=== PATIENT | female | born 1990 | race Hispanic/Latino ===

== ENCOUNTER 2016-09-11 13:21 | Emergency (ER) | payer OTHER ==
[~2016-09-11] VITALS: Ht 162.6 cm; Wt 76.2 kg
[2016-09-11] MEDS ORDERED: DEPO-PROVE150 MG/11 IM (13:33)
--- NOTE | 2016-09-11 14:10 | ED EYE COMPLAINT ---
History of Present Illness General Chief Complaint: Eye Problems Stated Complaint: SENT BY EYE DR FOR SWOLLEN NERVES Source: patient Exam Limitations: no limitations Vital Signs & Intake/Output Vital Signs & Intake/Output Vital Signs Date Time Temp Pulse Resp B/P Pulse O2 O2 Flow FiO2 Ox Delivery Rate 09/11 1819 98.3 98 15 115/74 100 Room Air 09/11 1527 99 Room Air 09/11 1517 97.0 94 22 117/78 100 Room Air 09/11 1325 96.8 103 20 139/90 99 Room Air ED Intake and Output 09/12 0000 09/11 1200 Intake Total 60 Output Total Balance 60 Intake, Oral 60 Patient 168 lb Weight Allergies Coded Allergies: No Known Allergies (09/11/16) Reconcile Medications Butalb/Acetaminophen/Caffeine (Fioricet 50-300-40 MG Capsule) 50 MG-300 MG-40 MG CAPSULE 1 TAB PO Q8 PRN HEADACHE Medroxyprogesterone Acetate (Depo-Provera) 150 MG/ML SYRINGE 1 ML IM Q3M CONTROL (Reported) Triage Note: PT PRESENTS TO ER FROM EYE DOCTOR FOR "SWOLLEN EYE NERVES." PT STATES SHE WAS SENT TO ER BY EYE DOCTOR (DR. ELDRIDGE) FOR EVAL. PT STATES SHE WENT TO DOCTOR DUE TO LEFT EYE VISION CHANGES FOR SEVERAL MONTHS. Triage Nurses Notes Reviewed? yes : No Patient currently breastfeeds: No HPI: This patient is a 26-year-old female who presented to the emergency department today sent in by her break out worker or evaluation of optic nerve swelling. The patient reported that over the last several months she has been having increasingly worse painless, blurriness in her left eye. She reported that she gets the blurriness approximately 3 times a day and he gets so bad that she feels like she cannot see anything out of her left eye 1-2 times a day. She reported that sometimes the back of her neck feels, "numb," but denied any pain or difficulty moving her neck. The patient reported that she does get associated frontal headache secondary to an 8 out of 10 and are responsive to ibuprofen. She denied any weakness or paresthesias in her extremities. She denied any chest pain or difficulty breathing. (ISMA THAKUR,CRUZ) Past History Travel History Traveled to [place] past 21 day No Medical History Any Pertinent Medical History? see below for history Surgical History Surgical History: non-contributory Psychosocial History What is your primary language Mongolian Tobacco Use: Never used Family History Hx Contributory? No (CRUZ ASHBY PA-C) Review of Systems Review of Systems Constitutional: Reports: no symptoms. Eyes: Reports: see HPI. Ear: Reports: no symptoms. Nose: Reports: no symptoms. Mouth: Reports: no symptoms. Throat: Reports: no symptoms. Respiratory: Reports: no symptoms. Cardiovascular: Reports: no symptoms. GI: Reports: no symptoms. Genitourinary: Reports: no symptoms. Musculoskeletal: Reports: no symptoms. Skin: Reports: no symptoms. Neurological/Psychological: Reports: see HPI. All Other Systems: Reviewed and Negative (CRUZ ASHBY PA-C) Physical Exam General Appearance: well developed/nourished, no apparent distress, alert, awake General Inspection: no periorbital erythema or edema. EOMI bilaterally. No nystagmus. No papilledema. No AV nicking. No cotton-wool spots. No conjunctival injection. PERRLA. General Inspection: no proptosis. No periorbital erythema or edema. Foreign body appreciated. EOMI. PERRLA. No papilledema on funduscopic examination. No AV nicking or cotton-wool spots. No nystagmus Physical Exam Comments: Well-developed well-nourished person in no acute distress HEENT: Head normocephalic/atraumatic with no bony deformity/step-off the skull, no tenderness to palpation of the scalp Neck: Supple, no lymphadenopathy, normal range of motion without pain or tenderness Back: Normal gait Cardiovascular: Regular rate and rhythms no murmurs, normal JVP Respiratory: Chest nontender. No respiratory distress. Breath sounds clear to auscultation bilaterally Extremity: No edema, no calf tenderness to palpation, normal and equal pulses. Neuro: Alert oriented x3, motor sensory normal, cranial nerves II through XII grossly intact. 5 out of 5 muscular strength in all extremities Skin: No appreciable rash on exposed skin, skin is warm and dry. Psych: Mood and affect is normal, memory and judgment is normal. (CRUZ ASHBY PA-C) Progress Differential Diagnosis: corneal abrasion, corneal foreign body, conjunctivitis, detached retina, glaucoma, globe rupture, retinal art./v. occlusion, optic neuritis, multiple sclerosis,pseudotumor cerebri, migraine headache with aura Plan of Care: Orders Procedure Date/time Status BLOOD CULTURE 09/11 1434 Active URINE 09/11 143 Complete WESTERGREN SED RATE 09/11 143 Complete COMPREHENSIVE METABOLIC PANEL 09/11 143 Complete CBC WITHOUT DIFFERENTIAL 09/11 143 Complete Laboratory Tests 09/11/16 1510: Anion Gap 11, Estimated GFR > 60, BUN/Creatinine Ratio 15.0, Glucose 81, Calcium 9.7, Total Bilirubin 0.6, AST 14, ALT 29, Alkaline Phosphatase 78, Total Protein 7.5, Albumin 4.1, Globulin 3.4, Albumin/Globulin Ratio 1.2, CBC w Diff NO MAN DIFF REQ, RBC 4.05 L, MCV 89.7, MCH 29.4, RDW 13.6, MPV 8.9, Gran % 71.1, Lymphocytes % 23.6, Monocytes % 3.7, Eosinophils % 1.2, Basophils % 0.4, Absolute Granulocytes 7.3 H, Absolute Lymphocytes 2.4, Absolute Monocytes 0.4, Absolute Eosinophils 0.1, Absolute Basophils 0, PUBS MCHC 32.8 L, ESR Westergren 16 09/11/16 1501: Urine Test NEGATIVE Microbiology 09/11 1520 BLOOD: Blood Culture - RECD 09/11 1510 BLOOD: Blood Culture - RECD Diagnostic Imaging: Viewed by Me: CT Scan. Discussed w/RAD: CT Scan. Radiology Impression: PATIENT: JOSEPH SCALES PRESENT AGE: 26 PATIENT ACCOUNT NO: [id number] : 92 LOCATION: [facility] ORDERING PHYSICIAN: CRUZ ASHBY PA-C SERVICE DATE: 09/11/16 EXAM TYPE: CAT - CT HEAD WO IV CONTRAST EXAMINATION: CT HEAD WITHOUT CONTRAST CLINICAL INFORMATION: Evaluate for intracranial hemorrhage or mass. Headache. Optic nerve swelling. COMPARISON: No relevant prior imaging available. TECHNIQUE: Contiguous axial imaging was performed from the skull base to vertex without intravenous administration of contrast. DLP: 529.16 mGy-cm FINDINGS: There is no acute intracranial hemorrhage or abnormal extra-axial collection. No intracranial mass effect or midline shift. Lateral and third ventricles are normal. No hydrocephalus. Barron-white matter differentiation is preserved and there is no evidence of acute territorial infarct. The calvarium and skull base are intact. Mastoid air cells and middle ear cavities are well aerated. Visualized paranasal sinuses are well aerated. Globes and orbits are symmetric. IMPRESSION: Unremarkable CT scan of the head. 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 < Electronically signed in Other Vendor System> SIGNED BY: HODAN PENNINGTON MD 09/11/16 9336 Comments: 09/11/2016 2:12:48 PM: I spoke to this patient's break out worker, Dr. Eldridge. He reported that she has presumed pseudotumor cerebri. He is requesting either a CT of the head or MRI of the head. He would like her blood Pressure checked as well as a neurology consultation. Recommending possible lumbar puncture. He reported that there was no buffalo hump on examination and he thinks of a cot this early. 09/11/2016 2:36:35 PM: I discussed with this patient my discussion with her break out worker. She would like to see the neurologist first before having the lumbar puncture. I will obtain a CT of her head as well as blood work. Discussed this patient with Dr. Reynolds who is in agreement with the plan. She is not currently having any severe blurriness. She reported that right now it is, "just mild." No current headaches. 09/11/2016 5:50:29 PM: I discussed this patient with on-call neurologist, Dr. Sewell. He will be seeing this patient in the office and possibly doing an outpatient lumbar puncture. (CRUZ ASHBY PA-C) Departure Departure Disposition: HOME OR SELF CARE Condition: Stable Clinical Impression Primary Impression: Pseudotumor cerebri Referrals: JAIDEN COE MD PATIENT HAS NO PRIMARY CARE DR (PCP/Family) Additional Instructions: Please follow-up with the neurologist as discussed as you may need an outpatient lumbar puncture. Take medication for pain as prescribed. Return for any worsening symptoms or concerns. Departure Forms: Customer Survey General Discharge Information Prescriptions: Current Visit Scripts Butalb/Acetaminophen/Caffeine (Fioricet 50-300-40 MG Capsule) 1 TAB PO Q8 PRN HEADACHE #10 TAB (CRUZ ASHBY PA-C) PA/DRIVING SCHOOL INSTRUCTOR Co-Sign Statement Statement: ED Attending supervision documentation- [] I saw and evaluated the patient. I have also reviewed all the pertinent lab results and diagnostic results. I agree with the findings and the plan of care as documented in the PA's/DRIVING SCHOOL INSTRUCTOR's documentation. [X] I have reviewed the ED Record and agree with the PA's/DRIVING SCHOOL INSTRUCTOR's documentation. [] Additions or exceptions (if any) to the PAs/DRIVING SCHOOL INSTRUCTOR's note and plan are summarized below: [] (JOSHUA MATA,YVES)
[2016-09-11 15:22] LABS: ABSOLUTE BASOPHIL COUNT 0 /CUMM (0.0-0.2); ABSOLUTE EOSINOPHIL COUNT 0.1 /CUMM (0.0-0.7); ABSOLUTE GRANULOCYTE CT 7.3 /CUMM (1.4-6.5); ABSOLUTE LYMPH COUNT 2.4 /CUMM (1.2-3.4); ABSOLUTE MONOCYTE COUNT 0.4 /CUMM (0.10-0.60); BASOPHIL % 0.4 % (0.0-2.0); EOSINOPHIL % 1.2 % (0-5); GRANULOCYTE % 71.1 % (42.2-75.2); HEMATOCRIT 36.3 % (37-47); MEAN CORPUSCULAR HGB 29.4 PG (27.0-31.0); MEAN CORPUSCULAR HGB CONC 32.8 G/DL (33.0-37.0); MEAN CORPUSCULAR VOLUME 89.7 FL (81.0-99.0); MEAN PLATELET VOLUME 8.9 FL (7.4-10.4); PLATELET COUNT 345 /CUMM (130-400); RBC DISTRIBUTION WIDTH 13.6 % (11.5-14.5); RED BLOOD CELL CT 4.05 /CUMM (4.20-5.40); WHITE BLOOD CELL COUNT 10.2 /CUMM (4.8-10.8)
--- NOTE | 2016-09-11 17:12 | CT SCAN REPORT ---
EXAMINATION: CT HEAD WITHOUT CONTRAST CLINICAL INFORMATION: Evaluate for intracranial hemorrhage or mass. Headache. Optic nerve swelling. COMPARISON: No relevant prior imaging available. TECHNIQUE: Contiguous axial imaging was performed from the skull base to vertex without intravenous administration of contrast. DLP: 529.16 mGy-cm FINDINGS: There is no acute intracranial hemorrhage or abnormal extra-axial collection. No intracranial mass effect or midline shift. Lateral and third ventricles are normal. No hydrocephalus. Barron-white matter differentiation is preserved and there is no evidence of acute territorial infarct. The calvarium and skull base are intact. Mastoid air cells and middle ear cavities are well aerated. Visualized paranasal sinuses are well aerated. Globes and orbits are symmetric. IMPRESSION: Unremarkable CT scan of the head.
[2016-09-11] MEDS ORDERED: FIORICET 50-301 EACH PO (17:51)
[2016-09-11 18:19] VITALS: BP 115/74
== END 2016-09-11 18:19 ==
LOC: ERH 13:21
PROVIDERS: Physician Assistant
DX: G93.2 Benign intracranial hypertension (principal); R51 Headache; R20.0 Anesthesia of skin
CPT/HCPCS: 81025; 87040

== ENCOUNTER 2016-09-17 15:09 | Emergency (ER) | payer OTHER ==
[~2016-09-17 15:09] MED LIST: DEPO-PROVE150 MG/11 IM; FIORICET 50-301 EACH PO
--- NOTE | 2016-09-17 17:42 | ED EYE COMPLAINT ---
History of Present Illness General Chief Complaint: Eye Problems Stated Complaint: "UM I WAS HERE LAST TIME NERVE PROBLEMS IN EYE" Source: patient, old records Exam Limitations: no limitations Vital Signs & Intake/Output Vital Signs & Intake/Output Vital Signs Date Time Temp Pulse Resp B/P Pulse O2 O2 Flow FiO2 Ox Delivery Rate 09/17 2024 97.2 68 17 106/58 99 Room Air 09/17 1827 97.5 62 18 115/64 100 09/17 1537 97.2 80 22 125/81 98 Allergies Coded Allergies: No Known Allergies (09/11/16) Reconcile Medications Acetazolamide 250 MG TABLET 1 TAB PO BID ELEVATED CSF PRESSURE Butalb/Acetaminophen/Caffeine (Fioricet 50-300-40 MG Capsule) 50 MG-300 MG-40 MG CAPSULE 1 TAB PO Q8 PRN HEADACHE Medroxyprogesterone Acetate (Depo-Provera) 150 MG/ML SYRINGE 1 ML IM Q3M CONTROL (Reported) Triage Note: PER PT SEEN 4 DAYS AGO FOR EYE PRESSURE TOLD TO COME BACK IF WORSE, PAIN WORSE. LMP 08/22/16 Triage Nurses Notes Reviewed? 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 Patient was evaluated in the emergency department previously and diagnosed with intracranial hypertension. She was referred to a neurologist but she has been unable to follow up (she was instructed by our neurologists to follow up with [facility] but then was told by [facility] that she needed a referral). Patient has had headaches and intermittent visual loss in the left eye. Patient denies any visual changes currently but is still suffering her headache. It has been an intermittent diffuse headache. No associated fever, chills, fevers or night sweats. Although the patient currently has the headache, she denies any visual disturbances at this time. (FUNMI MATA,MEHREEN Perales) Past History Travel History Traveled to [place] past 21 day No Medical History Any Pertinent Medical History? see below for history Neurological: NONE EENT: NONE Cardiovascular: NONE Respiratory: NONE Gastrointestinal: NONE Hepatic: NONE Renal: NONE Musculoskeletal: NONE Psychiatric: NONE Endocrine: NONE Surgical History Surgical History: non-contributory Psychosocial History What is your primary language Romansh Tobacco Use: Never used Family History Hx Contributory? No (MEHREEN CHOUDHARY MD) Review of Systems Review of Systems Constitutional: Reports: no symptoms. Eyes: Reports: see HPI. Ear: Reports: no symptoms. Nose: Reports: no symptoms. Mouth: Reports: no symptoms. Throat: Reports: no symptoms. Respiratory: Reports: no symptoms. Cardiovascular: Reports: no symptoms. GI: Reports: no symptoms. Genitourinary: Reports: no symptoms. Musculoskeletal: Reports: no symptoms. Skin: Reports: no symptoms. Neurological/Psychological: Reports: headache. Hematologic/Endocrine: Reports: no symptoms. Immunologic/Allergic: Reports: no symptoms. All Other Systems: Reviewed and Negative (FUNMI MATA,MEHREEN Perales) Physical Exam General Appearance: SEE BELOW General Inspection: normal inspection General Inspection: normal inspection Physical Exam Head: atraumatic, normal appearance Ears: Bilateral: other (NORMAL INSPECTION). Nose: normal inspection Neck: supple, full range of motion Neurologic/Psych: continuity tester II-XII nml as tested Skin: warm/dry Comments: Continuation of IV exam: PERRL bilaterally, EOMI bilaterally, funduscopic examination normal bilaterally. (FUNMI MATA,MEHREEN Perales) Progress Differential Diagnosis: NORMAL PRESSURE HYDROCEPHALUS/IDIOPATHIC INTRACRANIAL HYPERTENSION Plan of Care: Orders Procedure Date/time Status CEREBROSPINAL FLUID CULTURE 09/17 1946 Active CYTOLOGY SPECIMEN 09/17 1946 Active CSF TOTAL PROTEIN 09/17 1946 Complete CEREBROSPINAL FL CELL CT 09/17 1946 Complete CSF LDH 09/17 1946 Complete CSF GLUCOSE 09/17 1946 Complete Laboratory Tests 09/17/16 2000: CSF Glucose 54, CSF LDH 309, CSF Total Protein 22 09/17/16 2000: CSF WBC 1, CSF RBC 1 H, CSF Comment Microbiology 09/17 2004 [facility]: CSF Culture - RES 09/17 2004 [facility]: Gram Stain - RES Hand-Off Endorsed To: JESUS MATA,ANGELA Garcia Endorsed Time: 2012 Pending: labs (csf) Comments: 09/17/2016 6:39:51 PM patient's case discussed with Dr. Arias who feels that the patient's pulmonary diagnosis of intracranial hypertension is yet to be properly established. He feels that a lumbar puncture would be of great help in determining if patient's symptoms are in fact due to idiopathic intracranial hypertension. Patient is agreeable to a lumbar puncture, PAR explained. (FUNMI MATA,MEHREEN Perales) Departure Departure Disposition: HOME OR SELF CARE Condition: Stable Clinical Impression Primary Impression: Intracranial hypertension Referrals: [facility] PATIENT HAS NO PRIMARY CARE DR (PCP/Family) Additional Instructions: Follow-up with the [place] neurology clinic or the [facility] clinic as soon as possible for further evaluation of your headaches and visual disturbances. The opening pressure on your "spinal tap" was elevated and this requires further evaluation and testing. Acetazolamide as prescribed. Also contact [facility] practice and arrange for follow-up general medical evaluation as well. Return immediately if any visual changes, uncontrolled headache or any concerns or worsening. Departure Forms: Customer Survey General Discharge Information Prescriptions: Current Visit Scripts Acetazolamide 1 TAB PO BID #30 TAB (FUNMI MATA,MEHREEN Perales) Procedures Additional Procedures Additional Procedures: lumbar puncture Progress: Patient draped and prepped in usual manner and anesthetized with local infiltration of 1% lidocaine. Lumbar puncture performed under sterile technique with opening pressure of 49. Patient had mild discomfort during the procedure but otherwise tolerated the procedure well. Clear colorless fluid obtained. (UFNMI MATA,MEHREEN Perales)
[2016-09-17] MEDS ORDERED: ACETAZOLAMIDE250 M1 PO (19:59)
[2016-09-17 20:25] VITALS: BP 106/58
== END 2016-09-17 21:25 ==
LOC: ERH 15:09
DX: G93.2 Benign intracranial hypertension (principal)
CPT/HCPCS: 87070; 87205; 88305; 96374; 96375; J0131; J1885

== ENCOUNTER 2016-10-13 12:33 | Emergency (ER) | payer OTHER ==
[~2016-10-13] VITALS: Ht 160 cm; Wt 81.6 kg
[~2016-10-13 12:33] MED LIST changes: +ACETAZOLAMIDE250 M1 PO
--- NOTE | 2016-10-13 15:54 | ED HEADACHE COMPLAINT ---
History of Present Illness General Chief Complaint: Headache Stated Complaint: HEADACHES Source: patient Exam Limitations: no limitations Allergies Coded Allergies: No Known Allergies (09/11/16) Reconcile Medications Acetazolamide 250 MG TABLET 1 TAB PO BID ELEVATED CSF PRESSURE Acetazolamide (Diamox Sequels) 500 MG CAPSULE.ER 1 CAP PO BID PRN pseudotumor Medroxyprogesterone Acetate (Depo-Provera) 150 MG/ML SYRINGE 1 ML IM Q3M CONTROL (Reported) Oxycodone HCl/Acetaminophen (Percocet 5-325 MG Tablet) 5 MG-325 MG TABLET 1-2 TAB PO Q6P PRN pain Triage Note: PT TO ED FOR "PRESSURE BEHIND BOTH EYES" +PHOTOPHOBIA. 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 Triage Nurses Notes Reviewed? yes Onset: Abrupt Duration: week(s):, intermittent Timing: recent history Quality/Severity: moderate, severe, pressure, sharp No Modifying Factors: none : No Patient currently breastfeeds: No HPI: 26-year-old female comes into emergency room for further evaluation of headache. Patient reports that she was recently diagnosed with pseudotumor tumor cerebri. 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 Patient reports that she was then sent to the emergency room. She ended up getting a lumbar puncture on the second visit to relieve the pressure. She had a normal CT scan of her head. She was started on Acetazolomide . Patient has been trying to get into see a neurologist but has been having difficulty with her insurance. She is currently in the process of seeing a new primary care doctor. Patient comes in today because she's been having a recurrent headache again. She reports that she was having some intermittent blurriness since all the symptoms began last month. She reports some intermittent blurriness in the right eye. It is located in the frontal region of her head. There is no vomiting. Denies any fever or chills. Denies any other associated symptoms. (MARY COTTON) Vital Signs & Intake/Output Vital Signs & Intake/Output Vital Signs Date Time Temp Pulse Resp B/P B/P Pulse O2 O2 Flow FiO2 Mean Ox Delivery Rate 10/13 1819 76 18 122/62 98 Room Air 10/13 1723 98.6 76 18 126/85 98 Room Air 10/13 1300 97.8 87 16 130/73 97 Room Air Past History Travel History Traveled to [place] past 21 day No Medical History Any Pertinent Medical History? see below for history Neurological: PSEUDO-TUMOR? EENT: NONE Cardiovascular: NONE Respiratory: NONE Gastrointestinal: NONE Hepatic: NONE Renal: NONE Musculoskeletal: NONE Psychiatric: NONE Endocrine: NONE Surgical History Surgical History: non-contributory Psychosocial History What is your primary language Albanian Tobacco Use: Never used ETOH Use: denies use Family History Hx Contributory? No (MARY COTTON) Review of Systems Review of Systems Constitutional: Reports: no symptoms. Eyes: Reports: no symptoms. Ears, Nose, Throat, Mouth: Reports: no symptoms. Respiratory: Reports: no symptoms. Cardiovascular: Reports: no symptoms. Gastrointestinal/Abdominal: Reports: no symptoms. Genitourinary: Reports: no symptoms. Musculoskeletal: Reports: no symptoms. Skin: Reports: no symptoms. Neurological/Psychological: Reports: see HPI. Hematologic/Endocrine: Reports: no symptoms. Endocrine: Reports: no symptoms. Immunologic/Allergic: Reports: no symptoms. All Other Systems: Reviewed and Negative (MARY COTTON) Physical Exam Physical Exam General Appearance: well developed/nourished, alert, awake, mild distress Head: atraumatic, normal appearance Eyes: Bilateral: normal appearance, PERRL, EOMI. Ears, Nose, Throat: normal pharynx, normal ENT inspection, hearing grossly normal Neck: normal inspection, supple, full range of motion Respiratory: normal breath sounds, chest non-tender, no respiratory distress Cardiovascular: regular rate/rhythm Back: normal inspection Extremities: normal inspection, normal range of motion Psychiatric: awake, alert, oriented x 3 Cranial Nerves: normal hearing, normal speech, PERRL Coordination/Gait: normal finger to nose, normal gait Motor/Sensory: no motor/sensory deficits Skin: intact, normal color Core Measures Severe Sepsis Present: No Septic Shock Present: No (MARY COTTON) Progress Differential Diagnosis: carotid dissection, cav sinus thromb, cluster SAWYER, encephalitis, IC mass/tumor, intracranial Hem., meningitis, migraine SAWYER, musculoskeletal pain, post LP headache, sinusitis, SSS thrombosis, subarach. Hem., tension SAWYER, temporal arteritis, TMJ syndrome, viral cephalgia Plan of Care: Orders Procedure Date/time Status Coley, Insertion/Removal/Asses 10/13 154 Complete Current Medications Sig/Mikey Start time Last Medication Dose Stop Time Status Admin Promethazine HCl 12.5 MG ONCE ONE 10/13 1714 UNVr (Phenergen) 10/13 171 Sodium Chloride 1,000 ML BOLUS ONE 10/13 154 CAN (Normal Saline 0.9%) 10/13 1644 Microbiology 10/13 154 URINE ROUT: Urine Culture - CAN Cancelled: Cancelled via OE: Per MD Decision Comments: 10/13/2016 4:08:22 PM Patient is currently . She reports that she is terminating the next week and has an appointment. She understands the risks of the medications that she is getting and that they are not safe but she still wants some anyways. 10/13/2016 7:54:01 PM Case was discussed with Dr. Ascencio. He recommended increasing the Acetazolomide to 500 mg. The recommended doses 500 mg twice a day. Long conversation with patient. She would rather not get another repeat lumbar puncture today. Dr. Ascencio did not feel that this was an unreasonable plan. Patient was given Percocet for pain control. Patient was seen and evaluated by Dr. Zaman. Dr. Zaman was involved in the plan of care and he also agrees a plan of care. At this time lumbar puncture will not be performed patient be treated with increased dosing of her medication as well as Percocet for breakthrough pain. Patient was told that if she has any recurrent blurry vision or increase in headache that she should return for lumbar puncture. Her symptoms had significantly improved after IV pain medication here. Patient understands and agrees a plan of care. She currently has no blurriness of vision. sHe was reevaluated multiple times. Patient is ready to go home. Patient was counseled on the medications not being safe during . She reports that she is getting an next week and is already set up and she understands the risks and side effects of these medications and that they could have potential harm to the fetus. (WALDO PA,MARY) Departure Departure Disposition: HOME OR SELF CARE Condition: Stable Clinical Impression Primary Impression: Pseudotumor cerebri Referrals: PATIENT HAS NO PRIMARY CARE DR (PCP/Family) Additional Instructions: Increase dose dose of acetazolomide to 500 mg. Take Percocet as prescribed. Follow-up with neurologist to your primary care doctor. If you have any recurrent vision blurriness or increased headache he needs to return to the emergency room for a lumbar puncture. Please go over all results of today's visit with your primary care doctor. Contact your primary care doctor to let them know you were here in the emergency room. There may be nonspecific findings which may not be related to your visit today here in the emergency room but may require further evaluation and chronic monitoring by your primary care doctor. If you had a laceration today the chance of foreign body always remains. You should follow-up with your primary care doctor for recheck in 3-5 days for a wound check. If you had an x-ray done there is a chance that a fracture could have been missed on initial read and you should follow-up with your primary care doctor for repeat x-rays if symptoms persist. If your blood pressure was elevated here in the emergency room please have rechecked by her primary care doctor within the next 48 hours by your primary care doctor. If you were prescribed a narcotic here in the emergency room or any type of controlled substances you're not allowed to drive while taking this medication or operate any type of heavy machinery. Narcotics can make you feel lightheaded dizziness nausea and can cause constipation. You may need to cigar packer and picker a stool softener. Thank you for choosing [facility] emergency room. Please return to the emergency room immediately if you have any other concerns worsening of symptoms. Departure Forms: Customer Survey General Discharge Information Prescriptions: Current Visit Scripts Oxycodone HCl/Acetaminophen (Percocet 5-325 MG Tablet) 1-2 TAB PO Q6P PRN pain #20 TAB Acetazolamide (Diamox Sequels) 1 CAP PO BID PRN pseudotumor #60 CAP (MARY COTTON) PA/DIGITAL PHOTO PRINTER Co-Sign Statement Statement: ED Attending supervision documentation- [X] I saw and evaluated the patient. I have also reviewed all the pertinent lab results and diagnostic results. I agree with the findings and the plan of care as documented in the PA's/DIGITAL PHOTO PRINTER's documentation. [] I have reviewed the ED Record and agree with the PA's/DIGITAL PHOTO PRINTER's documentation. [] Additions or exceptions (if any) to the PAs/DIGITAL PHOTO PRINTER's note and plan are summarized below: [] (FUNMI MATA,MEHREEN Perales)
[2016-10-13] MEDS ORDERED: DIAMOX SEQUELS500 MG PO (18:14)
[2016-10-13] MEDS ORDERED: PERCOCET 5-3251 EACH PO (18:14)
[2016-10-13 18:19] VITALS: BP 122/62
== END 2016-10-13 18:20 ==
LOC: ERH 12:33
DX: G93.2 Benign intracranial hypertension (principal)
CPT/HCPCS: 87086; 96374; 96375; J1885; J2550

== ENCOUNTER 2016-11-26 17:06 | Emergency (ER) | payer OTHER ==
[~2016-11-26] VITALS: Ht 157.5 cm; Wt 87.5 kg
[~2016-11-26 17:06] MED LIST changes: +DIAMOX SEQUELS500 MG PO; +PERCOCET 5-3251 EACH PO
--- NOTE | 2016-11-26 18:48 | ED GENERAL ADULT ---
History of Present Illness General Chief Complaint: Headache Stated Complaint: SIB DR MARS HEADACHE Source: patient Exam Limitations: no limitations Vital Signs & Intake/Output Vital Signs & Intake/Output Vital Signs Date Time Temp Pulse Resp B/P B/P Pulse O2 O2 Flow FiO2 Mean Ox Delivery Rate 11/26 2033 97.9 78 22 124/57 96 Room Air 11/26 1709 98.6 72 18 120/67 98 Room Air Allergies Coded Allergies: No Known Allergies (09/11/16) Reconcile Medications Acetazolamide (Diamox Sequels) 500 MG CAPSULE.ER 1 CAP PO BID PRN pseudotumor Butalb/Acetaminophen/Caffeine (Pvmhoatu-Nkhimgkywucvh-Qxok Cp) 50 MG-325 MG-40 MG CAPSULE 1 TAB PO BID PRN HEADACHES (Reported) Ibuprofen 600 MG TABLET 1 TAB PO PRN PAIN (Reported) with food Medroxyprogesterone Acetate (Depo-Provera) 150 MG/ML SYRINGE 1 ML IM Q3M CONTROL (Reported) Oxycodone HCl/Acetaminophen (Percocet 5-325 MG Tablet) 5 MG-325 MG TABLET 1-2 TAB PO Q6P PRN pain Promethazine HCl 25 MG TABLET 1 TAB PO PRN N/V (Reported) Tramadol HCl 50 MG TABLET 1 TAB PO PRN PAIN (Reported) Triage Note: 26 YO EMALE SENT TO ER BY DR MARS. PER PT SHE HAS A HX OF PSUDO TUMORS AND TAKES WATER PILLS TO HELP RELIEVE THE PRESSURE IN HER HEAD. STATES HEADACHE IS BAD AT THIS TIME AND PER HER DR SHE SHOULD GET A LUMBAR PUNTURE TO HELP RELIEVE THE PRESSURE. PT STATES SHE HAS HAD MULTIPLE IN THE PAST TO HELP WITH THE PRESSURE. Triage Nurses Notes Reviewed? yes Onset: Abrupt Duration: day(s): Timing: recent history : No Patient currently breastfeeds: No HPI: 11/26/16 (MEHREEN WOODWARD DO) Past History Travel History Traveled to [place] past 21 day No Medical History Any Pertinent Medical History? see below for history Neurological: PSEUDO-TUMOR? 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 No (MEHREEN WOODWARD DO) Review of Systems Review of Systems Constitutional: Denies: fever. EENTM: Reports: visual changes. Respiratory: Denies: short of breath. Cardiovascular: Denies: chest pain. GI: Denies: abdominal pain. Genitourinary: Reports: no symptoms. Musculoskeletal: Reports: no symptoms. Skin: Reports: no symptoms. Neurological/Psychological: Reports: headache. Hematologic/Endocrine: Denies: bruising, bleeding. Immunologic/Allergic: Reports: no symptoms. (MEHREEN WOODWARD DO) Physical Exam Physical Exam General Appearance: well developed/nourished, alert, awake, anxious, moderate distress Head: atraumatic, normal appearance Eyes: Bilateral: normal appearance, PERRL, EOMI (no papilledema). Ears, Nose, Throat: normal pharynx, normal ENT inspection, no papilledma Neck: normal inspection, supple, full range of motion Respiratory: normal breath sounds, chest non-tender, no respiratory distress Cardiovascular: regular rate/rhythm Peripheral Pulses: 4+ radial (R), 4+ radial (L) Gastrointestinal: non-tender Back: normal range of motion Extremities: normal range of motion Neurologic/Psych: no motor/sensory deficits, awake, alert, oriented x 3, normal gait Skin: intact, normal color, warm/dry Core Measures ACS in differential dx? No CVA/TIA Diagnosis: No Severe Sepsis Present: No Septic Shock Present: No (MEHREEN WOODWARD DO) Progress Differential Diagnoses I considered the following diagnoses in my evaluation of the patient: [ Pseudotumor cerebri, migraine headache, tension headache] Plan of Care: Orders Procedure Date/time Status Saline Lock 11/26 1912 Active Initial ED EKG: none (MEHREEN WOODWARD DO) Comments: PT IS FEELING MUCH MUCH BETTER. D/W PT SPINAL TAP. PT STATES THAT SHE IS FEELING MUCH BETTER AND DOES NOT WANT TO HAVE ONE AT THIS POINT. SHE IS GOING TO CALL HER NEUROLOGIST IN THE MORNING. SHE PROMISDES TO RETURN IF SYMPTOMS WORSEN. (JESUS MATA,ANGELA Garcia) Departure Departure Condition: Stable Clinical Impression Primary Impression: Headache Referrals: MINOO MCKEON MD (PCP/Family) Departure Forms: Customer Survey General Discharge Information Comments 11/26/16 7 pm The patient was given a trial of IV medications. Neurology was contacted. We are awaiting a page back. The patient was signed out to Dr. Davalos at 7 PM (MEHREEN WOODWARD DO) Departure Disposition: HOME OR SELF CARE Additional Instructions: CALL YOUR NEUROLOGIST TOMORROW MORNING RETURN IF SYMPTOMS WORSEN OR FOR ANY CONCERNS (JESUS MATA,ANGELA Garcia) Critical Care Note Critical Care Note Critical Care Time: non-applicable (MEHREEN WOODWARD DO)
[2016-11-26] MEDS ORDERED: IBUPROFEN600 M1 PO (18:56)
[2016-11-26] MEDS ORDERED: BUTALBIT-ACETA1 EACH PO (18:56)
[2016-11-26] MEDS ORDERED: TRAMADOL HCL50 M1 PO (18:57)
[2016-11-26] MEDS ORDERED: PROMETHAZINE HC25 M3 PO (18:57)
[2016-11-26 20:34] VITALS: BP 124/57
== END 2016-11-26 21:17 ==
LOC: ERH 17:06
DX: R51 Headache (principal)
CPT/HCPCS: 96374; 96375; J1120; J1885; J2765; J7040

== ENCOUNTER 2017-11-23 17:12 | Inpatient (IN) | payer OTHER ==
[~2017-11-23] VITALS: Ht 160 cm; Wt 85.7 kg
[~2017-11-23 17:12] MED LIST changes: -DEPO-PROVE150 MG/11 IM; +PROMETHAZINE HC25 M3 PO
--- NOTE | 2017-11-23 18:48 | ED GENERAL ADULT ---
History of Present Illness General Chief Complaint: General Adult Stated Complaint: "MY STOMACH IS KILLING ME" Source: patient Exam Limitations: no limitations Allergies Coded Allergies: No Known Allergies (09/11/16) Reconcile Medications Acetazolamide (Diamox Sequels) 500 MG CAPSULE.ER 1 CAP PO BID PRN pseudotumor Butalb/Acetaminophen/Caffeine (Bgxglfkl-Evvfhndaalfoc-Qnll Cp) 50 MG-325 MG-40 MG CAPSULE 1 TAB PO BID PRN HEADACHES (Reported) Ibuprofen 600 MG TABLET 1 TAB PO PRN PAIN (Reported) with food Medroxyprogesterone Acetate (Depo-Provera) 150 MG/ML SYRINGE 1 ML IM Q3M CONTROL (Reported) Oxycodone HCl/Acetaminophen (Percocet 5-325 MG Tablet) 5 MG-325 MG TABLET 1-2 TAB PO Q6P PRN pain Promethazine HCl 25 MG TABLET 1 TAB PO PRN N/V (Reported) Tramadol HCl 50 MG TABLET 1 TAB PO PRN PAIN (Reported) Triage Note: 27F WITH MID ABDOMINAL PAIN SINCE THIS MORNING, SHARP AND STABBING AND CONSTANT. DENIES RADIATION OF PAIN. DENIES ETOH. VOMITED X2. AFEBRILE. LAST MENSES 11/21/17. 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 yes Onset: Abrupt Duration: hour(s): Timing: continuous Injury Environment: home Severity: severe No Modifying Factors: none Associated Symptoms: vomiting and nausea : No Patient currently breastfeeds: No HPI: This is a 27yoF w hx of hydrocephalus s/p VPS in August at [facility]; she arrives w aprupt onset epigastric abd pain which started at rest today; she has had associated vomiting and nausea; no obvious association with food. She is in significant discomfort upon arrival w focal TTP to epigastrium. She also notes recent pain with urination; no suprapubic disomcomfort. She has no neurologic complaints or findings on exam (Rory Quintero MD) Vital Signs & Intake/Output Vital Signs & Intake/Output Vital Signs Date Time Temp Pulse Resp B/P B/P Pulse O2 O2 Flow FiO2 Mean Ox Delivery Rate 11/23 1905 70 18 124/78 100 Room Air 11/23 1717 98.4 63 18 130/88 91 Room Air (Junie MATA,Meek Pearson) Past History Travel History Traveled to [place] past 21 day No Medical History Any Pertinent Medical History? see below for history Neurological: PSEUDO-TUMOR? 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 Yes (Rory Quintero MD) Review of Systems Review of Systems Constitutional: Reports: no symptoms. EENTM: Reports: no symptoms. Respiratory: Reports: no symptoms. Cardiovascular: Reports: no symptoms. GI: Reports: abdominal pain, nausea, vomiting. Denies: constipation, diarrhea, melena, bloody stool, changes in stool. Genitourinary: Reports: dysuria. Musculoskeletal: Reports: no symptoms. Skin: Reports: no symptoms. Neurological/Psychological: Reports: no symptoms. Hematologic/Endocrine: Reports: no symptoms. (Rory Quintero MD) Physical Exam Physical Exam General Appearance: well developed/nourished, alert, awake, anxious, mild distress Head: atraumatic, normal appearance Eyes: Bilateral: normal appearance. Ears, Nose, Throat: normal ENT inspection Neck: normal inspection, supple, full range of motion Respiratory: normal breath sounds Cardiovascular: regular rate/rhythm Gastrointestinal: soft, tenderness, no rebound, non-peritoneal Skin: intact, normal color, warm/dry Core Measures ACS in differential dx? No CVA/TIA Diagnosis: No Sepsis Present: No Sepsis Focused Exam Completed? No (Rory Quintero MD) Progress Differential Diagnoses I considered the following diagnoses in my evaluation of the patient: biliary disease such as cholecystitis, pancreatitis, renal stone, UTI, appendicitis, ectopic ; doubt AAA; mikl concern for VPS malfunction (doubt given lack of headache/infectious/neurologic symptoms) Initial ED EKG: NO ECG done Comments: EXAMINATION: CT ABDOMEN AND PELVIS WITH CONTRAST CLINICAL INFORMATION: Severe epigastric pain. COMPARISON: None TECHNIQUE: Multidetector volumetric imaging was performed of the abdomen and pelvis following IV administration of 95 mL of obtained 320 intravenous contrast. Sagittal and coronal reformatted images were obtained on the technologist's workstation. DLP: 381 mGy-cm FINDINGS: LUNG BASES: The visualized lung bases are unremarkable. LIVER, GALLBLADDER, AND BILIARY TREE: The liver is normal in size, shape, and attenuation. No focal hepatic lesion or biliary ductal dilatation is present. The gallbladder is unremarkable with no evidence of radiopaque gallstones, gallbladder wall thickening, or obvious pericholecystic inflammatory changes. PANCREAS: Unremarkable. SPLEEN: Unremarkable. ADRENAL GLANDS: Unremarkable. KIDNEYS AND URETERS: The kidneys are normal in size, shape, and attenuation. There is a 5 mm distal right ureteral/UVJ stone with moderate right hydroureteronephrosis. No radiopaque calculi seen in the kidneys. No left hydronephrosis. BLADDER: Unremarkable. GASTROINTESTINAL TRACT: Scattered stool is seen in the colon without significant distention. The small bowel loops are normal. There is no free air. Minimal free fluid seen in the pelvis. A ventriculoperitoneal shunt catheter is seen with its inferior tip in the midabdomen. ABDOMINAL WALL: No significant hernia is appreciated. LYMPH NODES: Normal. VASCULAR: Unremarkable. PELVIC VISCERA: Unremarkable. OSSEOUS STRUCTURES: No lytic or sclerotic process seen. IMPRESSION: 5 mm obstructive right UVJ stone with moderate right hydroureteronephrosis. There is a right ventriculoperitoneal shunt in midabdomen. DICTATED BY: Tyrell Aleman MD DATE/TIME DICTATED:11/23/172157 DEVIL DOG:ULI DATE/TIME TRANSCRIBED:11/23/172157 ([place]) Plan of Care: Orders Procedure Date/time Status Add-on Test (ER Only) 11/24 2031 Active HUMAN BETA HCG SCREEN 11/23 1849 Complete CULTURE,URINE 11/23 1837 Active URINE 11/23 1837 Active URINALYSIS 11/23 1837 Active LIPASE 11/23 1837 Complete COMPREHENSIVE METABOLIC PANEL 11/23 1837 Complete CBC WITHOUT DIFFERENTIAL 11/23 1837 Complete Laboratory Tests 11/23/171849: Anion Gap 13, Estimated GFR > 60, BUN/Creatinine Ratio 11.0, Glucose 116 H, Calcium 9.2, Total Bilirubin 0.5, AST 13 L, ALT 18, Alkaline Phosphatase 66, Total Protein 7.7, Albumin 4.2, Globulin 3.5, Albumin/Globulin Ratio 1.2, Lipase 49, Total Beta HCG NEGATIVE, CBC w Diff NO MAN DIFF REQ, RBC 4.17 L, MCV 89.9, MCH 30.0, MCHC 33.4, RDW 13.3, MPV 9.1, Gran % 85.0 H, Lymphocytes % 11.7 L, Monocytes % 2.6, Eosinophils % 0.6, Basophils % 0.1, Absolute Granulocytes 10.5 H, Absolute Lymphocytes 1.4, Absolute Monocytes 0.3, Absolute Eosinophils 0.1, Absolute Basophils 0 Microbiology 11/23 1838 URINE ROUT: Urine Culture - ORD Planning for labs, CT abd, pain/symptom control, reassessment (Rory Quintero MD) (Junie MATA,Meek Pearson) Departure Departure Disposition: STILL A PATIENT Condition: Stable Clinical Impression Primary Impression: Epigastric abdominal pain Referrals: Little MATA,Gage Rondon (PCP/Family) Departure Forms: Customer Survey General Discharge Information (Rory Quintero MD) Critical Care Note Critical Care Note Critical Care Time: non-applicable (Rory Quintero MD)
[2017-11-23 19:03] LABS: ABSOLUTE BASOPHIL COUNT 0 /CUMM (0.0-0.2); ABSOLUTE EOSINOPHIL COUNT 0.1 /CUMM (0.0-0.7); ABSOLUTE GRANULOCYTE CT 10.5 /CUMM (1.4-6.5); ABSOLUTE LYMPH COUNT 1.4 /CUMM (1.2-3.4); ABSOLUTE MONOCYTE COUNT 0.3 /CUMM (0.10-0.60); BASOPHIL % 0.1 % (0.0-2.0); EOSINOPHIL % 0.6 % (0-5); HEMATOCRIT 37.5 % (37-47); MEAN CORPUSCULAR HGB CONC 33.4 G/DL (33.0-37.0); MEAN CORPUSCULAR VOLUME 89.9 FL (81.0-99.0); MEAN PLATELET VOLUME 9.1 FL (7.4-10.4); PLATELET COUNT 334 /CUMM (130-400); RBC DISTRIBUTION WIDTH 13.3 % (11.5-14.5); RED BLOOD CELL CT 4.17 /CUMM (4.20-5.40); WHITE BLOOD CELL COUNT 12.3 /CUMM (4.8-10.8)
--- NOTE | 2017-11-23 22:07 | CT SCAN REPORT ---
EXAMINATION: CT ABDOMEN AND PELVIS WITH CONTRAST CLINICAL INFORMATION: Severe epigastric pain. COMPARISON: None TECHNIQUE: Multidetector volumetric imaging was performed of the abdomen and pelvis following IV administration of 95 mL of obtained 320 intravenous contrast. Sagittal and coronal reformatted images were obtained on the technologist's workstation. DLP: 381 mGy-cm FINDINGS: LUNG BASES: The visualized lung bases are unremarkable. LIVER, GALLBLADDER, AND BILIARY TREE: The liver is normal in size, shape, and attenuation. No focal hepatic lesion or biliary ductal dilatation is present. The gallbladder is unremarkable with no evidence of radiopaque gallstones, gallbladder wall thickening, or obvious pericholecystic inflammatory changes. PANCREAS: Unremarkable. SPLEEN: Unremarkable. ADRENAL GLANDS: Unremarkable. KIDNEYS AND URETERS: The kidneys are normal in size, shape, and attenuation. There is a 5 mm distal right ureteral/UVJ stone with moderate right hydroureteronephrosis. No radiopaque calculi seen in the kidneys. No left hydronephrosis. BLADDER: Unremarkable. GASTROINTESTINAL TRACT: Scattered stool is seen in the colon without significant distention. The small bowel loops are normal. There is no free air. Minimal free fluid seen in the pelvis. A ventriculoperitoneal shunt catheter is seen with its inferior tip in the midabdomen. ABDOMINAL WALL: No significant hernia is appreciated. LYMPH NODES: Normal. VASCULAR: Unremarkable. PELVIC VISCERA: Unremarkable. OSSEOUS STRUCTURES: No lytic or sclerotic process seen. IMPRESSION: 5 mm obstructive right UVJ stone with moderate right hydroureteronephrosis. There is a right ventriculoperitoneal shunt in midabdomen.
--- NOTE | 2017-11-23 22:10 | RADIOLOGY REPORT ---
EXAMINATION: XR CHEST CLINICAL INFORMATION: Epigastric abdominal pain. COMPARISON: None TECHNIQUE: 2 views of the chest were obtained. FINDINGS: The lungs are well-expanded and clear of acute process. The heart size and pulmonary vascularity is normal. No gross bony abdomen is seen. A STONE PAVER shunt catheter traverses the right anterior chest. IMPRESSION: Unremarkable chest exam.
--- NOTE | 2017-11-23 23:00 | History & Physical ---
Sherlyn Claire 11/23/17 1071: General Information and HPI MD Statement: I have seen and personally examined JOSEPH DELONG and documented this H&P. The patient is a 27 year old F who presented with a patient stated chief complaint of [kidney stone]. Source of Information: patient Exam Limitations: no limitations History of Present Illness: Ms. Delong is a 27yo F w/ no pertinent PMH except s/p right V-P shunt now only on Diamox, presented to ER w/ eipgastric pain. Patient stated that her pain started since this morning, was sharp and stabbing and constant, however no radiations most likely in the lower abdomen part. Patient denies any use of alcohol. Patient had also had nausea/vomiting twice, however denied any temperatures. Patient has lost. Psych around 11/21/2017, and had a ADOPTION SPECIALIST shunt placed in August 2017. Patient stated that she has burning/frequency/suprapubic pain during urination, with possible foul-smelling, but denies any hematuria/foamy urine. Patient is currently only taking Diamox after she got a right ADOPTION SPECIALIST shunt, and denied taking any other pain meds including ibuprofen/oxycodone/Tylenol at home. During our clinical interaction, patient denied recent travel/sick contacts, lightheadedness/diaphoresis/night sweat/weight change/cough/SOB/Chest Pain/ Palpitation/bowel movement abnormality, or other skin/musculoskeletal/ neurological/mood disorders, or dietary/appetite change. -Smoking: remotely light smoker, quitted long time ago. -Alcohol: denied -Rec Drugs: denied Allergies/Medications Allergies: Coded Allergies: No Known Allergies (09/11/16) Home Med list Acetazolamide 500 MG CAPSULE.ER 500 TAB PO BID HYDROCEPHALUS (Reported) Past History Travel History Traveled to [place] past 21 day No Medical History Neurological: PSEUDO-TUMOR? 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 Exam & Diagnostic Data Last 24 Hrs of Vital Signs/I&O Vital Signs Date Time Temp Pulse Resp B/P B/P Pulse O2 O2 Flow FiO2 Mean Ox Delivery Rate 11/23 1905 70 18 124/78 100 Room Air 11/23 1717 98.4 63 18 130/88 91 Room Air Physical Exam General Appearance Alert, Oriented X3, Cooperative, Mild Distress Skin No Rashes, No Breakdown, No Significant Lesion Skin Temp/Moisture Exam: Warm/Dry Sepsis Skin Exam (color): Normal for Ethnicity HEENT Atraumatic Neck Supple Cardiovascular Regular Rate Lungs Clear to Auscultation, Normal Air Movement Abdomen Normal Bowel Sounds, Soft, generalized lower Ab tenderness, more on the left +ve CVA tenderness on the right Neurological Normal Speech, Strength at 5/5 X4 Ext, Normal Tone, Sensation Intact Extremities No Edema, Normal Pulses, No Tenderness/Swelling Last 24 Hrs of Labs/Gautam: Laboratory Tests 11/23/172230: Urinalysis MANY H, Urine Color YEL, Urine Clarity CLDY H, Urine pH 7.0, Ur Specific [place] 1.010, Urine Protein NEG, Urine Ketones 40 H, Urine Nitrite NEG, Urine Bilirubin NEG, Urine Urobilinogen 0.2, Ur Leukocyte Esterase TRACE H , Ur Microscopic SEDIMENT EXAMINED, Urine RBC RARE, Urine WBC RARE, Ur Epithelial Cells MANY H, Urine Hemoglobin NEG, Urine Glucose NEG, Urine Test NEGATIVE 11/23/17 1850: Anion Gap 13, Estimated GFR > 60, BUN/Creatinine Ratio 11.0, Glucose 116 H, Calcium 9.2, Total Bilirubin 0.5, AST 13 L, ALT 18, Alkaline Phosphatase 66, Total Protein 7.7, Albumin 4.2, Globulin 3.5, Albumin/Globulin Ratio 1.2, Lipase 49, Total Beta HCG NEGATIVE, CBC w Diff NO MAN DIFF REQ, RBC 4.17 L, MCV 89.9, MCH 30.0, MCHC 33.4, RDW 13.3, MPV 9.1, Gran % 85.0 H, Lymphocytes % 11.7 L, Monocytes % 2.6, Eosinophils % 0.6, Basophils % 0.1, Absolute Granulocytes 10.5 H, Absolute Lymphocytes 1.4, Absolute Monocytes 0.3, Absolute Eosinophils 0.1, Absolute Basophils 0 Microbiology 11/23 2230 URINE ROUT: Urine Culture - RECD Assessment/Plan Assessment: On admission, Vitals: Stable afebrile, pulse 70, RR 18, BP 124/78 -CBC: Mild leukocytosis 12.3, H&H stable -BMP: Unremarkable -UA/Microbiology: -CT abdomen:5 mm obstructive right UVJ stone with moderate right hydroureteronephrosis. There is a right ventriculoperitoneal shunt in midabdomen. -Interventions in ER: Morphine 2 mg IV 2, IV fluid, Zofran Problem list/Assessment/Hospital Course: #Obstructive nephrolithiasis of the right kidney #Leukocytosis, likely reactive #PMH of right ADOPTION SPECIALIST shunt - Admit to general medicine, vitals per protocol -Continuous IV fluids, will keep n.p.o. overnight pending urological procedure if any. Otherwise, may advance diet if Urology would not bring her to OR. -Pending urine culture DVT prophylaxis ALPS NPO Full Code As Ranked By This Provider Problem List: 1. Nephrolithiasis Core Measures/Misc (03/10) Acute Coronary Syndrome ACS Diagnosis: No Congestive Heart Failure Congestive Heart Failure Diagnosis No Cerebrovascular Accident CVA/TIA Diagnosis: No VTE (View Protocol) VTE Risk Factors Acute Medical Illness No Mechanical VTE Prophylaxis d/t N/A MechProphylax Ordered No VTE Pharm Prophylaxis d/t Surgical Contraindication Sepsis (View protocol) Sepsis Present: No If YES complete Sepsis Event Note If YES complete Sepsis [facility]157: Core Measures/Misc (03/10) Sepsis (View protocol) If YES complete Sepsis Event Note If YES complete Sepsis Event Note Attending MD Review Statement Attending Statement Attending MD Statement: examined this patient, discuss w/resident/PA/AIRCRAFT GENERAL REPAIR MECHANIC, agreed w/resident/PA/AIRCRAFT GENERAL REPAIR MECHANIC, discussed with nursing Attending Assessment/Plan: Ms. Delong is an 87-year-old female with history of right-sided ADOPTION SPECIALIST shunt, currently on Diamox, without any significant past medical history presented to the ER with complaints of abdominal pain. Does have some right-sided flank pain which seems to be radiating. On examination - vital signs blood pressure 124/78, heart rate of 70, temperature 98.4 saturating 100% on room air. Assessment 1. Right-sided obstructive nephrolithiasis - Urology recommend no urgent surgical intervention 2. S/p Right sided ADOPTION SPECIALIST shunt 3. Leucocytosis Plan Admit to Gen med. Will keep NPO overnight until seen by Urology Continue with IV Ceftriaxone 1 g Daily Follow up on urine cultures Heparin SC for DVT prophylaxis Joan Sahni 11/24/17 0426: Core Measures/Misc (03/10) Sepsis (View protocol) If YES complete Sepsis Event Note If YES complete Sepsis Event Note Resident Review Statement Resident Statement: examined this patient, discussed with intern brand, agreed with intern brand Other Findings: Ms Delong is a 27 year old woman w/ a PMHx of hydrocephalus status post VPS 2017 at [facility] (Abrahan Hodge MD) came to the hospital with a chief concern of epigastric abdominal pain 1 day which radiated to the suprapubic region and to the back. Reported nausea and vomiting 3 which was nonbloody. No dysuria, but reported increased odor in her urination. No chest pain, palpitations, shortness of breath. No neurological symptoms such as headache, vision changes. At the time of admission-temperature 98.4, pulse rate 63, respiration 18, blood pressure 130/88, pulse ox 91% on room air. General Exam: AAOx3, mild distress, Skin: No rashes, no breakdown;HEENT: PERRLA, EOMI; Neck: Supple, No JVD; No cervical lymphadenopathy;CVS: Reg Rate, Normal S1 ,S2, No MGR; Resp: Normal air entry, no ronchi/rales;Abdomen: Soft, suprapubic tenderness +, CVA tenderness on the right side, scar in the epigastric region, Normal Bowel Sounds;Neuro: Normal Speech, Strength 5/5 b/l x 4 extremities, Sensation intact, CN III-XII NL, Reflexes 2+; Extremities: No cyanosis, no pedal edema. Pertinent lab findings- WBC 12.3( 85% granulocytosis ), Hb 12.5, platelet count 334 Sodium 143, potassium 4.3, chloride 111, bicarbonate 18, anion gap 13 Renal function-BUN 11, creatinine 1.0 Liver chemistries-AST 13, ALT 18, alkaline phosphatase 66 Lipase 49, beta hCG negative. Urinalysis revealed cloudy urine, urine ketone 40(likely decreased po intake), leukocyte esterase trace, urine epithelial cells many. CT abdomen and pelvis 11/23/2017-5 mm obstructive right UVJ stone with moderate right hydroureteronephrosis. There is a right ventriculoperitoneal shunt in midabdomen. Chest [id number] chest exam. Etiology in this case with suprapubic pain associated with chills, costovertebral/suprapubic tenderness is likely from nephrolithiasis. Since, she has dysurea but no clear e/o pyelonephritis or UTI, she should be watched closely for any worsening infection. She was started on abx, which could be continued, if she will be taken to the OR today. Predisposing factors such as mechanical obstruction with nephrolithiasis is contributing to her etiology. Differential diagnosis considered cystitis and nephrolithiasis. In regards to nephrolithiasis, it is unclear if acetazolamide contributes to calcium phosphate crystal formation; and if so a different medication should be considered in her case. Problem list: #1 nephrolithiasis #2 ? UTI #3 hyperchloremic metabolic acidosis #4 history of hydrocephalus status post VPS shunt. - Admit the patient to general medicine service. -Empiric antibiotics with ceftriaxone, pending urine culture. Antibiotics could be discontinued, after discussing with the urologist, if no procedure would be undertaken. Could be watched off antibiotics. It is unclear, if the patient has any UTI. -Monitor vitals closely -Follow CBCs daily -For the management of nephrolithiasis, she was started on normal saline; which should be changed to lactated Ringer's given her chloremia. Use of acetazolamide could be contributing to her decreased bicarbonate. Urology consult. -Continue acetazolamide, pending stone analysis. -Stone analysis, if possible. Checklist: DVT prophylaxis-subcutaneous heparin GI prophylaxis-Protonix when necessary. CODE STATUS Full Code Consults-urology Pain management w/ opiates for now.
[2017-11-24] MEDS ORDERED: ACETAZOLAMIDE500 M2 PO (00:02)
[2017-11-24 05:33] LABS: ABSOLUTE EOSINOPHIL COUNT 0 /CUMM (0.0-0.7); EOSINOPHIL % 0 % (0-5)
[2017-11-24 06:06] LABS: ABSOLUTE BASOPHIL COUNT 0.1 /CUMM (0.0-0.2); ABSOLUTE GRANULOCYTE CT 8.7 /CUMM (1.4-6.5); ABSOLUTE LYMPH COUNT 1.5 /CUMM (1.2-3.4); ABSOLUTE MONOCYTE COUNT 0.8 /CUMM (0.10-0.60); BASOPHIL % 0.5 % (0.0-2.0); GRANULOCYTE % 78.5 % (42.2-75.2); MEAN CORPUSCULAR HGB 30.6 PG (27.0-31.0); MEAN CORPUSCULAR VOLUME 89.9 FL (81.0-99.0); MEAN PLATELET VOLUME 9.1 FL (7.4-10.4); PLATELET COUNT 275 /CUMM (130-400); RBC DISTRIBUTION WIDTH 13.2 % (11.5-14.5); RED BLOOD CELL CT 3.61 /CUMM (4.20-5.40)
[2017-11-24 06:13] LABS: HEMATOCRIT 32.5 % (37-47)
--- NOTE | 2017-11-24 12:40 | Admission Certification ---
Admission Certification Certification Statement - As attending physician, I certify that at the time of - admission, based on clinical presentation, severity of - symptoms, need for further diagnostic testing and - therapeutic interventions, and risk of adverse outcomes - without in-hospital treatment, in my clinical assessment, - this patient requires an acute hospital stay for a minimum - of two nights or longer. I have also considered psychsocial - factors such as support system, advanced age, financial - issues, cognitive issues, and failed out-patient treatments, - past re-admission history, safety of patient, and lack of - compliance as applicable. Specific rationale supporting this admission is: Obstructive uropathy with UTI
--- NOTE | 2017-11-24 12:45 | PN- Att Addend ---
Attending Addendum Attending Brief Note Patient seen and examined. She feels well and is eager to eat. On exam her blood pressure is 114/60, pulse is 55, breathing at 16-18 and she's afebrile. She is awake alert oriented, lungs are clear to auscultation, heart is S1-S2 regular and her abdomen she appears to have some suprapubic tenderness and some right flank tenderness. She's a 27-year-old with a history of hydrocephalus status post a right-sided SYRUP SHED SUPERVISOR shunt at [place] last year was here with an obstructive uropathy with the stone in the right UV junction with pain and questionable UTI. She was hydrated overnight, will feed her now, stop the fluids and continue the antibiotics while following the urine culture closely. Urology consult is pending.
[2017-11-24 15:00] VITALS: BP 96/60
--- NOTE | 2017-11-24 15:33 | Cons- Urology ---
General Information and HPI Consulting Request Date of Consult: 11/24/17 Requested By: Blair John MD Reason for Consult: Right distal ureteral calculus Source of Information: patient, old records Exam Limitations: no limitations History of Present Illness: Patient 27-year-old woman who underwent a CAR STOWER shunt in August who presents complaining of one-day history of right lower quadrant pain. She had some nausea and vomiting, but denied any fevers/chills or gross hematuria. She denies any significant urologic history, with particular no history of kidney stones. She was seen in the emergency room, and given minimal pain medication, which seemed to resolve her pain for short duration. She was given 2 mg of morphine IV on 1 Percocet. She had minimal pain medication overnight, and does have some right pelvic pressure at this time. Allergies/Medications Allergies: Coded Allergies: No Known Allergies (09/11/16) Home Med List: Acetazolamide 500 MG CAPSULE.ER 500 TAB PO BID HYDROCEPHALUS (Reported) Current Medications: Current Medications Sig/Mikey Start time Last Medication Dose Route Stop Time Status Admin Acetaminophen 650 MG Q6P PRN 11/23 2345 AC PO Acetazolamide 500 MG BID 11/24 0900 AC 11/24 PO 0922 Al Hydroxide/Mg 0 .STK-MED ONE 11/23 1904 DC Hydroxide PO Al Hydroxide/Mg 30 ML ONCE ONE 11/23 1845 DC 11/23 Hydroxide PO 11/23 1846 1904 Ceftriaxone Sodium 1,000 MG DAILY 11/24 0900 AC 11/24 IV 0851 Heparin Sodium 0 .STK-MED ONE 11/24 1414 DC (Porcine) .ROUTE Heparin Sodium 5,000 UNIT Q8 11/24 0600 AC 11/24 (Porcine) SC 1403 Hydrocodone Bitart/ 1 TAB Q6P PRN 11/23 2345 DC Acetaminophen PO Lactated Ringer's 1,000 ML Q10H 11/24 0945 DC 11/24 IV 11/25 0544 0956 Morphine Sulfate 0 .STK-MED ONE 11/24 0848 DC .ROUTE Morphine Sulfate 2 MG Q4P PRN 11/23 2345 AC 11/24 IV 0845 Morphine Sulfate 0 .STK-MED ONE 11/23 203 DC .ROUTE Morphine Sulfate 2 MG ONCE ONE 11/23 2014 DC 11/23 IV 11/23 Morphine Sulfate 0 .STK-MED ONE 11/23 1902 DC .ROUTE Morphine Sulfate 2 MG ONCE ONE 11/23 1845 DC 11/23 IV 11/23 1846 1904 Ondansetron HCl 0 .STK-MED ONE 11/24 0848 DC .ROUTE Ondansetron HCl 0 .STK-MED ONE 11/24 0031 DC .ROUTE Ondansetron HCl 4 MG Q6P PRN 11/24 0030 AC 11/24 IV 1508 Ondansetron HCl 0 .STK-MED ONE 11/23 1904 DC .ROUTE Ondansetron HCl 4 MG ONCE ONE 11/23 1845 DC / IV 11/23 1846 1904 Oxycodone/ 2 TAB Q6P PRN 11/24 1445 AC Acetaminophen PO Oxycodone/ 0 .STK-MED ONE 11/24 1141 DC Acetaminophen PO Oxycodone/ 0 .STK-MED ONE 11/24 0306 DC Acetaminophen PO Oxycodone/ 1 TAB Q6P PRN 11/24 0015 DC 11/24 Acetaminophen PO 1133 Sodium Chloride 1,000 ML Q10H 11/23 2345 DC 11/24 IV 0922 Sodium Chloride 1,000 ML ONCE ONE 11/23 2014 DC 11/23 IV 11/23 Tamsulosin HCl 0.4 MG DAILY 11/24 1431 AC PO Past History Medical History Blood Transfusion Hx: No Neurological: PSEUDO-TUMOR? 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 Home Services at Home: NONE Smoking Status: Never Smoked ETOH Use: denies use Illicit Drug Use: denies illicit drug use Review of Systems Review of Systems: See HPI Exam & Diagnostic Data Vital Signs and I&O Vital Signs Date Time Temp Pulse Resp B/P B/P Pulse O2 O2 Flow FiO2 Mean Ox Delivery Rate 11/24 0523 98.1 55 18 114/61 100 Room Air 11/24 0033 67 20 116/70 99 Room Air 11/23 1905 70 18 124/78 100 Room Air 11/23 1717 98.4 63 18 130/88 91 Room Air Intake & Output 11/24 1600 11/24 0800 11/24 0000 11/23 1600 11/23 0800 11/23 0000 Intake Total 940 Output Total 100 100 Balance 840 -100 Intake, IV 700 Intake, Oral 240 Output, 100 100 Emesis Patient 189 lb 189 lb Weight Weight Reported by Patient Measurement Method Physical Exam Other Physical Findings: Abdomen-soft and nontender. No CVA tenderness. Last 24 Hours of Labs: Laboratory Tests 11/24 11/24 11/24 UNK 0559 0525 Chemistry Sodium (137 - 145 mmol/L) 139 Potassium (3.5 - 5.1 mmol/L) 4.0 Chloride (98 - 107 mmol/L) 112 H Carbon Dioxide (22 - 30 mmol/L) 17 L Anion Gap (5 - 16) 11 BUN (7 - 17 mg/dL) 9 Creatinine (0.5 - 1.0 mg/dL) 1.1 H Estimated GFR (>60 ml/min) > 60 BUN/Creatinine Ratio (7 - 25 %) 8.2 Hematology CBC w Diff NO MAN DIFF REQ WBC (4.8 - 10.8 /CUMM) 11.0 H RBC (4.20 - 5.40 /CUMM) 3.61 L Hgb (12.0 - 16.0 G/DL) 11.1 L Hct (37 - 47 %) 32.5 L MCV (81.0 - 99.0 FL) 89.9 MCH (27.0 - 31.0 PG) 30.6 MCHC (33.0 - 37.0 G/DL) 34.0 RDW (11.5 - 14.5 %) 13.2 Plt Count (130 - 400 /CUMM) 275 MPV (7.4 - 10.4 FL) 9.1 Gran % (42.2 - 75.2 %) 78.5 H Lymphocytes % (20.5 - 51.1 %) 13.9 L Monocytes % (1.7 - 9.3 %) 7.1 Eosinophils % (0 - 5 %) 0 Basophils % (0.0 - 2.0 %) 0.5 Absolute Granulocytes (1.4 - 6.5 /CUMM) 8.7 H Absolute Lymphocytes (1.2 - 3.4 /CUMM) 1.5 Absolute Monocytes (0.10 - 0.60 /CUMM) 0.8 H Absolute Eosinophils (0.0 - 0.7 /CUMM) 0 Absolute Basophils (0.0 - 0.2 /CUMM) 0.1 Toxicology Acetone Level (NEGATIVE) Cancelled NEGATIVE 11/23 11/23 7014 7940 Chemistry Sodium (137 - 145 mmol/L) 143 Potassium (3.5 - 5.1 mmol/L) 4.3 Chloride (98 - 107 mmol/L) 111 H Carbon Dioxide (22 - 30 mmol/L) 18 L Anion Gap (5 - 16) 13 BUN (7 - 17 mg/dL) 11 Creatinine (0.5 - 1.0 mg/dL) 1.0 Estimated GFR (>60 ml/min) > 60 BUN/Creatinine Ratio (7 - 25 %) 11.0 Glucose (65 - 99 mg/dL) 116 H Calcium (8.4 - 10.2 mg/dL) 9.2 Total Bilirubin (0.2 - 1.3 mg/dL) 0.5 AST (14 - 36 U/L) 13 L ALT (9 - 52 U/L) 18 Alkaline Phosphatase (<127 U/L) 66 Total Protein (6.3 - 8.2 g/dL) 7.7 Albumin (3.5 - 5.0 g/dL) 4.2 Globulin (1.9 - 4.2 gm/dL) 3.5 Albumin/Globulin Ratio (1.1 - 2.2 %) 1.2 Lipase (23 - 300 U/L) 49 Total Beta HCG (NEGATIVE) NEGATIVE Hematology CBC w Diff NO MAN DIFF REQ WBC (4.8 - 10.8 /CUMM) 12.3 H RBC (4.20 - 5.40 /CUMM) 4.17 L Hgb (12.0 - 16.0 G/DL) 12.5 Hct (37 - 47 %) 37.5 MCV (81.0 - 99.0 FL) 89.9 MCH (27.0 - 31.0 PG) 30.0 MCHC (33.0 - 37.0 G/DL) 33.4 RDW (11.5 - 14.5 %) 13.3 Plt Count (130 - 400 /CUMM) 334 MPV (7.4 - 10.4 FL) 9.1 Gran % (42.2 - 75.2 %) 85.0 H Lymphocytes % (20.5 - 51.1 %) 11.7 L Monocytes % (1.7 - 9.3 %) 2.6 Eosinophils % (0 - 5 %) 0.6 Basophils % (0.0 - 2.0 %) 0.1 Absolute Granulocytes (1.4 - 6.5 /CUMM) 10.5 H Absolute Lymphocytes (1.2 - 3.4 /CUMM) 1.4 Absolute Monocytes (0.10 - 0.60 /CUMM) 0.3 Absolute Eosinophils (0.0 - 0.7 /CUMM) 0.1 Absolute Basophils (0.0 - 0.2 /CUMM) 0 Urines Urinalysis MANY H Urine Color (YEL,AMB,STR) YEL Urine Clarity (CLEAR) CLDY H Urine pH (5.0 - 8.0) 7.0 Ur Specific [place] (1.001 - 1.035) 1.010 Urine Protein (NEG,<30 MG/DL) NEG Urine Ketones (NEG) 40 H Urine Nitrite (NEG) NEG Urine Bilirubin (NEG) NEG Urine Urobilinogen (0.1 - 1.0 EU/dl) 0.2 Ur Leukocyte Esterase (NEG) TRACE H Ur Microscopic SEDIMENT EXAMINED Urine RBC (0 - 5 /HPF) RARE Urine WBC (0 - 2 /HPF) RARE Ur Epithelial Cells (NONE,FEW) MANY H Urine Hemoglobin (NEG) NEG Urine Glucose (N MG/DL) NEG Urine Test NEGATIVE Imaging Results: She has a 5 mm distal right ureteral calculus. Assessment/Plan Assessment/Plan Distal right ureteral calculus, patient is otherwise asymptomatic. She is not been given adequate pain medication, receiving only 2 mg of morphine IV, 1 Percocet. She should be adequately medicated for her pain. She should be started on tamsulosin 0.4 mg daily. We should strain her urine, and keep her on IV fluids. She should be started on prophylactic antibiotics, and be kept nothing by mouth after midnight for consideration of ureteroscopy tomorrow. Patient will be followed by Dr. Silveira tomorrow. Problem List: 1. Nephrolithiasis Consult Acknowledgment - Thank you for your consult request.
[2017-11-24 22:00] VITALS: BP 108/50
[2017-11-25 07:48] VITALS: BP 124/60
[2017-11-25 08:34] LABS: PT 12.7 SEC (9.4-12.5)
[2017-11-25 08:47] LABS: ABSOLUTE BASOPHIL COUNT 0 /CUMM (0.0-0.2); ABSOLUTE EOSINOPHIL COUNT 0.1 /CUMM (0.0-0.7); ABSOLUTE GRANULOCYTE CT 3.7 /CUMM (1.4-6.5); ABSOLUTE LYMPH COUNT 2.5 /CUMM (1.2-3.4); ABSOLUTE MONOCYTE COUNT 0.5 /CUMM (0.10-0.60); BASOPHIL % 0.5 % (0.0-2.0); EOSINOPHIL % 1.8 % (0-5); GRANULOCYTE % 54.3 % (42.2-75.2); HEMATOCRIT 30.7 % (37-47); MEAN CORPUSCULAR HGB 30.9 PG (27.0-31.0); MEAN CORPUSCULAR HGB CONC 34.3 G/DL (33.0-37.0); MEAN PLATELET VOLUME 9.6 FL (7.4-10.4); PLATELET COUNT 238 /CUMM (130-400); RBC DISTRIBUTION WIDTH 13.3 % (11.5-14.5); RED BLOOD CELL CT 3.42 /CUMM (4.20-5.40); WHITE BLOOD CELL COUNT 6.9 /CUMM (4.8-10.8)
--- NOTE | 2017-11-25 08:58 | PN- Housestaff ---
Ye MATA,Lena 11/25/17 0858: Subjective Follow-up For: obstructive uropathy with the stone in the right UV junction PHAN Subjective: Seen and examined. Scheduled to go to OR for stone removal. is comfortable on present analgesic regimen Review of Systems Constitutional: Reports: see HPI. Objective Last 24 Hrs of Vital Signs/I&O Vital Signs Date Time Temp Pulse Resp B/P B/P Pulse O2 O2 Flow FiO2 Mean Ox Delivery Rate 11/25 1530 98.9 62 20 110/80 97 Room Air Room Air 11/25 0855 58 118/64 11/25 0748 98.0 60 20 124/60 98 /03 2200 97.9 60 16 108/50 97 Room Air 11/24 1727 118 96/60 Intake & Output 11/25 1600 11/25 0800 11/25 0000 Intake Total 460 1000 100 Output Total 400 550 Balance 60 450 100 Intake, IV 400 1000 Intake, Oral 60 0 100 Output, Urine 400 550 Physical Exam General Appearance: Alert, Oriented X3 Cardiovascular: Normal S1, Normal S2 Lungs: Clear to Auscultation Abdomen: Soft, R flank tenderness Neurological: Normal Speech Current Medications: Current Medications Sig/Mikey Start time Last Medication Dose Route Stop Time Status Admin Acetaminophen 650 MG Q6P PRN 11/23 2345 AC PO Acetaminophen/ 1 TAB ONCE ONE 11/25 1130 DC Butalbital/Caffeine PO 11/25 1131 Acetazolamide 500 MG BID 11/24 0900 AC 11/25 PO 0853 Ceftriaxone Sodium 1,000 MG DAILY 11/24 0900 AC 11/25 IV 0906 Dextrose/Sodium 1,000 ML Q13H 11/25 0845 11/25 Chloride IV 11/25 2144 0914 Heparin Sodium 5,000 UNIT Q8 11/24 0600 AC 11/25 (Porcine) SC 0545 Morphine Sulfate 2 MG Q4P PRN 11/23 2345 AC 11/25 IV 0545 Ondansetron HCl 4 MG Q6P PRN 11/24 0030 AC 11/25 IV 1120 Oxycodone/ 2 TAB Q6P PRN 11/24 1445 AC 11/25 Acetaminophen PO 0851 Sodium Chloride 1,000 ML Q6H / 0100 DC 11/25 IV 0105 Sodium Chloride 500 ML BOLUS ONE 11/24 1800 DC 11/24 IV 11/24 1859 1827 Tamsulosin HCl 0.4 MG DAILY 11/24 1431 AC 11/25 PO 0855 Last 24 Hrs of Lab/Gautam Results Last 24 Hrs of Labs/Mics: Laboratory Tests 11/25/17 0745: Anion Gap 9, Estimated GFR 55 L, BUN/Creatinine Ratio 5.8 L, PT 12.7 H, INR 1.16, CBC w Diff NO MAN DIFF REQ, RBC 3.42 L, MCV 90.0, MCH 30.9, MCHC 34.3, RDW 13.3, MPV 9.6, Gran % 54.3, Lymphocytes % 35.6, Monocytes % 7.8, Eosinophils % 1.8, Basophils % 0.5, Absolute Granulocytes 3.7, Absolute Lymphocytes 2.5, Absolute Monocytes 0.5, Absolute Eosinophils 0.1, Absolute Basophils 0 Assessment/Plan Assessment: The patient is 77-year-old female with past medical history of hydrocephalus status post INSPECTOR HAIRSPRING TRUING shunt only on Diamox. She presented to [facility] ED on 11/23 with complaint of abdominal pain located in obstructive uropathy with the stone in the right UV junction epigastric region and right flank radiating towards the back along with burning/frequency/suprapubic pain during urination, with possible foul-smelling urine. She also reported feeling nauseous along with subjective chills and fever. Vitals on presentations were stable CBC was remarkable for leukocytosis 12.3. UA was not very impressive with trace leukoesterase, few WBCs and many epithelial cells. CT Abdomen Showed 5 mm obstructive right UVJ stone with moderate right hydroureteronephrosis. There is a right ventriculoperitoneal shunt in midabdomen. The patient was admitted to general medicine floor for management of obstructive uropathy with the stone in the right UV junction. The patient was started on prophylactic antibiotics (IV ceftriaxone) and was hydrated with IV fluids. Patient underwent right-sided ureteroscopic stone extraction on 11/25. Leukocytosis has resolved. Urine culture has shown no growth to date. During her stay patient BMP showed chloride of 113 and bicarbonate of 19 likely secondary to agressive hydration with normal saline. (Non-anion gap metabolic acidosis). The fluids were shifted to D5 half normal saline. The patient's creatinine bumped up to 1.2. With the resolution of obstruction her PHAN will probably resolve. We will repeat BEP in the morning and if Cr has improved/stable she can be discharged home with 5 day course of oral antibiotics and few Percocet pills for analgesia She will need renal ultrasound in 2-3 weeks for to check for resolution She should be counseled on discharged to avoid NSAIDs Problem List: 1. Nephrolithiasis Pain Ratin [facility] Pain Goal: Pain 4 or less Pain Plan: prn Tomorrow's Labs & Rationales: Mayco Jain MD 11/25/17 1436: Attending MD Review Statement Attending Statement Attending MD Statement: examined this patient, discuss w/resident/PA/SENIOR OFFICER, agreed w/resident/PA/SENIOR OFFICER, discussed with family, reviewed EMR data (avail), discussed with nursing, discussed with case mgmt, amended to note Attending Assessment/Plan: Patient seen and examined. No issues overnight reported by nursing staff. Remains afebrile and hemodynamically stable. Resting comfortably and not in any acute distress. Reports some flank pain. Controlled with current pain regimen. Scheduled to undergo ureteral stent placement later on today by the urology service. If pain improves postoperatively and patient remains hemodynamically stable she may be discharged once cleared by the urology service.
--- NOTE | 2017-11-25 15:10 | Operative Report ---
Operative/Inv Procedure Report Surgery Date: 11/25/17 Name of Procedure: CYSTO: RIGHT URETEROSCOPY, BASKET EXTRACT STONE: LASER STANDBY Pre-Operative Diagnosis: RIGHT URETER STONE WITH SEVERE COLIC Post-Operative Diagnosis: SAME Estimated Blood Loss: scant Surgeon/Low Raw Sugar Cutter: MD Raoul, [place] Anesthesia: laryngeal mask airway Specimens: right ureter stone Complications: none Condition: improved-now stone free Operative/Procedure Note Note: The patient was taken to the operating room and placed on the OR table in supine position. Timeout was performed, with the patient awake, in order to confirm correct identity, procedure, laterality, and other pertinent myrtle-operative information. After adequate anesthesia and antibiotics, the patient was then placed in lithotomy stirrups, draped and prepped in the usual surgical fashion. The Holmium Yag Laser was confirmed in the room and on standby. A 22 Grenadian cystoscope sheath with 30 angle lens was inserted into the bladder without difficulty. Upon entering the bladder, the bladder was noted to be free of tumor , and free of stone. Both orifices were in their orthotopic position, with clear efflux of urine from the left. The right ureter orifice was intubated with an 8fr cone-tip catheter and a retrograde pyelogram with fluoroscopy was performed revealing mild hydronephrosis, and 5mm distal ureter filling defect. The cone-tipped catheter was removed, followed by insertion of a 0.035 Glidewire , which was advanced into the right renal pelvis without difficulty, with fluoroscopic visualization. Leaving the Glidewire in place, the cystoscope was removed. The Flexible ureteroscope was railroaded over the gluidewire, following it with fluoroscopic visualization, into the bladder, up the right ureter, and into the right renal pelvis, with fluoroscopy visualization. A retrograde pyelogram was again performed via the ureteroscope revealing no filling defect, normal appearing right renal anatomy. Pyeloscopy/calyxoscopy of the upper, middle, and lower poles reveal no evidence of tumor, no evidence of stones. Additionally, NO other stones, nor any tumor was visualized in the renal pelvis. The entire length of the ureter was also visualized carefully on the way out, and the 5mm stone at the distal ureter was grasped with the zero- tip basket. The stone and scope were extracted easily, with the stone sent to pathology. At this point the standby laser was disengaged. The bladder was then drained after the ureteroscope was removed. The patient tolerated the procedure well was then taken to the recovery room in satisfactory condition. She is to follow up in 4 weeks for POC. Discharge Disposition: PACU CC: Franck Silveira MD
--- NOTE | 2017-11-25 15:11 | PN- Urology ---
Surgical Brief Attending Note Brief Attending Note: post operatively stable: dc home with brief course abx, and pain meds: f/u renal US in 2-4 weeks.
[2017-11-25 15:30] VITALS: BP 110/80
--- NOTE | 2017-11-25 17:17 | Discharge Summary ---
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 She presented to [facility] ED on 11/23 with complaint of abdominal pain located in epigastric region and right flank radiating towards the back along with burning/frequency/suprapubic pain during urination, with possible foul-smelling urine. She also reported feeling nauseous along with subjective chills and fever. Vitals on presentations were stable CBC was remarkable for leukocytosis 12.3. UA was not very impressive with trace leukoesterase, few WBCs and many epithelial cells. CT Abdomen Showed 5 mm obstructive right UVJ stone with moderate right hydroureteronephrosis. There is a right ventriculoperitoneal shunt in midabdomen. The patient was admitted to general medicine floor for management of obstructive uropathy with the stone in the right UV junction. The patient was started on prophylactic antibiotics IV ceftriaxone and was hydrated with IV fluids. Patient underwent right-sided ureteroscopic stone extraction on 11/25. Leukocytosis has resolved. Urine culture has shown no growth to date. During her stay patient BMP showed chloride of 113 and bicarbonate of 19 likely secondary to agressive hydration with normal saline. (Non-anion gap metabolic acidosis). The fluids were shifted to D5 half normal saline. The patient creatinine bumped up to 1.2. (PHAN) With resolution of obstruction the PHAN aslo resolved. She received 3 days of IV ceftriaxone and does not require any more antibiotics. -She will require urological follow-up on discharge, referral has been provided. And a repeat renal ultrasound in 2-3 weeks. -She has been extensively counseled to avoid NSAIDs and will be discharged on 8 pills of Percocet for pain control. She was full code during her stay Allergies: Coded Allergies: No Known Allergies (09/11/16) Disposition Summary Disposition Principal Diagnosis: obstructive uropathy with the stone in the right UV junction Additional Diagnosis: PHAN Discharge Disposition: home or self care Discharge Instructions General Discharge Information Code Status: Full Code Patient's Diet: As tolerated Patient's Activity: As tolerated Follow-Up Instructions/Appts: Urological follow-up, PCP follow-up, repeat renal ultrasound in 2-3 weeks. Medications at Discharge Discharge Medications: Stop taking the following medications: Oxycodone HCl/Acetaminophen (Percocet 5-325 MG Tablet) 5 MG-325 MG TABLET ORAL EVERY SIX HOURS NEEDED as needed for pain Qty = 20 Ibuprofen (Ibuprofen) 600 MG TABLET ORAL as needed for PAIN Qty = 30 Promethazine HCl (Promethazine HCl) 25 MG TABLET ORAL as needed for N/V Qty = 10 Tramadol HCl (Tramadol HCl) 50 MG TABLET ORAL as needed for PAIN Qty = 10 Continue taking these medications: Medroxyprogesterone Acetate (Depo-Provera) 150 MG/ML SYRINGE 1 Milliliters INTRAMUSC Every 3 months Comments: NOT GIVEN Butalb/Acetaminophen/Caffeine (Visdbbft-Kijvueosggebl-Thug Cp) 50 MG-325 MG-40 MG CAPSULE 1 Tablet ORAL TWICE DAILY as needed for HEADACHES Qty = 30 Comments: NOT GIVEN Acetazolamide (Acetazolamide) 500 MG CAPSULE.ER 500 Tablet ORAL TWICE DAILY Qty = 60 Comments: Last Taken: 11/26/17 Time: 0800 Start taking the following new medications: Oxycodone HCl/Acetaminophen (Percocet 5-325 MG Tablet) 5 MG-325 MG TABLET 1 Tablet ORAL TWICE DAILY as needed for SEVERE FLANK PAIN Qty = 8 No Refills Instructions: Please take only as instructed Comments: Last Taken: 11/26/17 Time: 1000 Copies To: Little MATA,Gage Silveira MD,Franck Velasquez MD Review Statement Documenting Attending: Mayco Branch MD Other Findings: Medically stable to be discharged today.
[2017-11-25 17:18] VITALS: BP 112/58
[2017-11-25] MEDS ORDERED: PERCOCET 5-3251 EACH PO (18:04)
--- NOTE | 2017-11-25 18:06 | Patient Discharge Instructions ---
Discharge Instructions General Discharge Information You were seen/treated for: obstructive uropathy PHAN You had these procedures: right-sided ureteroscopic stone extraction on 11/25. Special Instructions: -Please follow-up with your primary care doctor after discharge -Please follow-up with the urologist, Dr. Silveira, 1-2 weeks after discharge. Please call the office to make an appointment -Please avoid NSAIDs as they can worsen during the renal injury -you will require a renal ultrasound in 2-3 weeks to check for resolution Diet Continue normal diet: Yes Activity Activity Self Limited: Yes Acute Coronary Syndrome Inclusion Criteria At DC or during hospital stay patient has or had the following: ACS DIAGNOSIS No Discharge Core Measures Meds if any: Prescribed or Continued at Discharge Meds if any: NOT Prescribed or Continued at Discharge Congestive Heart Failure Inclusion Criteria At DC or during hospital stay patient has or had the following: CHF DIAGNOSIS No Discharge Core Measures Meds if any: Prescribed or Continued at Discharge Meds if any: NOT Prescribed or Continued at Discharge Cerebrovascular accident Inclusion Criteria At DC or during hospital stay patient has or had the following: CVA/TIA Diagnosis No Discharge Core Measures Meds if any: Prescribed or Continued at Discharge Meds if any: NOT Prescribed or Continued at Discharge Venous thromboembolism Inclusion Criteria VTE Diagnosis No VTE Type NONE VTE Confirmed by (Test) NONE Discharge Core Measures - Per Current guidelines, there needs to be overlap - treatment for the first 5 days of Warfarin therapy. - If discharged on Warfarin prior to 5 days of - overlap therapy, the patient will need to be - assessed for post discharge needs including - *Post discharge parental anticoagulation - *Warfarin and/or parental anticoagulation education - *Follow up date to check INR post discharge At least 5 days overlap therapy as Inpatient No Meds if any: Prescribed or Continued at Discharge Note: Overlap Therapy is Warfarin and Anticoagulant Meds if any: NOT Prescribed or Continued at Discharge
[2017-11-25 22:34] VITALS: BP 118/57
[2017-11-26 06:56] VITALS: BP 96/52
--- NOTE | 2017-11-26 07:15 | PN- Housestaff ---
Subjective Follow-up For: Obstructive uropathy w/ stone in the R UV junction s/p Lithotripsy and Stone retreval PHAN Subjective: Patient was seen and examined today. Patient reports right flank pain a 6/10 in severity which improves to 3/10 with percocet. Patient reports minimal hematuria and abdominal pain. Denies fever/chills, n/v/c/d, chest pain, shortness of breath. No acute events overnight. Review of Systems Constitutional: Reports: see HPI. Objective Last 24 Hrs of Vital Signs/I&O Vital Signs Date Time Temp Pulse Resp B/P B/P Pulse O2 O2 Flow FiO2 Mean Ox Delivery Rate 11/26 0752 122/74 06/ 0656 98.2 75 18 96/52 97 / 2234 98.2 77 18 118/57 100 Room Air 11/25 1718 97.9 58 16 112/58 97 Room Air Intake & Output 11/26 1600 06/ 0800 06/ 0000 Intake Total 860 1035 Output Total 800 1500 Balance 60 -465 Intake, IV 500 535 Intake, Oral 360 500 Output, Urine 800 1500 Physical Exam General Appearance: Alert, Oriented X3, Cooperative, No Acute Distress Skin: No Rashes Skin Temp/Moisture Exam: Warm/Dry Sepsis Skin Exam (color): Normal for Ethnicity HEENT: Atraumatic, Mucous Membr. moist/pink Cardiovascular: Regular Rate, Normal S1, Normal S2 Lungs: Clear to Auscultation, Normal Air Movement Abdomen: Normal Bowel Sounds, Soft, mild tenderness to deep palpation on the right abdomen and right flank Neurological: Normal Gait, Normal Speech, Strength at 5/5 X4 Ext, Normal Tone, Sensation Intact, Cranial Nerves 3-12 NL Extremities: No Clubbing, No Cyanosis, No Edema, Normal Pulses, No Tenderness/ Swelling Current Medications: Current Medications Sig/Mikey Start time Last Medication Dose Route Stop Time Status Admin Acetaminophen 650 MG Q6P PRN 11/23 2345 DCD PO Acetazolamide 500 MG BID 11/24 899 DCD 11/26 PO 0752 Ceftriaxone Sodium 1,000 MG DAILY 11/24 09 DC 11/25 IV 0906 Cefuroxime Sodium 250 MG ONCE ONE 11/26 0830 DC / PO 11/26 0931 1043 Dextrose/Sodium 1,000 ML Q13H 11/25 0845 DC 11/25 Chloride IV 11/25 2144 0914 Heparin Sodium 5,000 UNIT Q8 11/24 0600 DCD 11/25 (Porcine) SC 0545 Morphine Sulfate 2 MG Q4P PRN 11/23 2345 DCD 11/25 IV 2256 Ondansetron HCl 4 MG Q6P PRN 11/24 0030 DCD 11/25 IV 1120 Oxycodone/ 2 TAB Q6P PRN 11/24 1445 DCD 11/26 Acetaminophen PO 1027 Tamsulosin HCl 0.4 MG DAILY 11/24 1431 DCD 11/26 PO 0752 Last 24 Hrs of Lab/Gautam Results Last 24 Hrs of Labs/Mics: Laboratory Tests 11/26/17 0719: Anion Gap 9, Estimated GFR > 60, BUN/Creatinine Ratio 6.7 L Assessment/Plan Assessment: Patient is a pleasant 27 y/o female with PMH of elevated ICP s/p V/P shunt on diamox presenting this admission with chief complaint right flank pain. Patient was admitted to general medicine. Patient on CT was found to have a 5 mm obstructive right UVJ stone with moderate right hydrouretronphrosis. Patient had a mild leukocytosis on admission. Patient was started on IV Ceftriaxone and was evaluated by urology. Patient had lithotripsy and stent removal. Patient today remains afebrile. Patient continues to have flank pain controlled with percocet. Patient has minimal hematuria which is expected per urology. Problems: 1. Obstructive nephrolithiasis with stone in the right UVJ status post right uretroscopy, basket extract of stone 2. PHAN - resolved Plan: Admitted to general medicine floor Patient is stable for discharge from urology and medicine standpoint Will give patient one more day of antibiotic therapy for a total of 3 days Will send patient with a 3-4 days of percocet Patient will follow up with urology and will need a renal ultrasound in 2-4 weeks DVT PPx: heparin SQ Diet: Regular Code: Full code Dispo: discharge home today Problem List: 1. Nephrolithiasis Pain Ratin Pain Location: right flank Pain Goal: Pain 4 or less Pain Plan: percocet Tomorrow's Labs & Rationales: none- dc home today
[2017-11-26 07:52] VITALS: BP 122/74
[2017-11-26] MEDS ORDERED: IBUPROFEN600 M1 PO (09:56)
[2017-11-26] MEDS ORDERED: BUTALBIT-ACETA1 EACH PO (09:56)
[2017-11-26] MEDS ORDERED: TRAMADOL HCL50 M1 PO (09:57)
[2017-11-26] MEDS ORDERED: DEPO-PROVE150 MG/11 IM (09:57)
[2017-11-26] MEDS ORDERED: PERCOCET 5-3251 EACH PO (10:23)
--- NOTE | 2017-11-26 15:32 | PN- Att Addend ---
Attending Addendum Attending Brief Note Patient seen and examined. No issues overnight reported by nursing staff. Remains afebrile and hemodynamically stable. Resting comfortably and not in any acute distress. Reports feeling better today. Admits to mild discomfort in the flank but improved with analgesic therapy. She is afebrile and hemodynamically stable. She is medically stable to be discharged today and will follow-up with the urology service as an outpatient.
== END 2017-11-26 11:58 | DRG 446 ==
LOC: ERH 17:12 → 2NB 22:41 → ERHI 22:41 → ENRESERV 11-24 13:52 → ENTRNSPT 11-24 14:17 → EDTRNSPT 11-24 14:23 → 2NB 11-24 14:53 → EDTRNSPTSTS 11-24 14:55 → CMPTRNSPT 11-24 15:05 → 2NB 11-25 08:08 → ENTRNSPT 11-25 14:49 → EDTRNSPT 11-25 14:51 → EDTRNSPTSTS 11-25 14:51 → CMPTRNSPT 11-25 15:05 → ENPENDDIS 11-26 10:37 → ENTRNSPT 11-26 11:46 → 2NB 11-26 11:58 → EDTRNSPTSTS 11-26 11:59 → EDTRNSPT 11-26 11:59 → CMPTRNSPT 11-26 12:05
PROVIDERS: Student in an Organized Health Care Education/Training Program
PROC: 0TC68ZZ Extirpation of Matter from Right Ureter, Via Natural or Artificial Opening Endoscopic (ICD-10-PCS; principal; 2017-11-25)
DX: N13.9 Obstructive and reflux uropathy, unspecified (principal); Z98.2 Presence of cerebrospinal fluid drainage device; G91.9 Hydrocephalus, unspecified; D72.829 Elevated white blood cell count, unspecified; E87.2 Acidosis; N17.9 Acute kidney failure, unspecified
CPT/HCPCS: 2NBP; ERO; 36592; 71046; 74177; 81001; 81025; 82436; 87086; 93005; 93010; J0696; J1644; J2405; J2550; J7040; J7120